=== PATIENT | female | born 1970 | race Caucasian/White ===

== ENCOUNTER → 2023-09-13 17:37 | Outpatient (REF) | payer OTHER, SELFPAY | LOC: WDC 17:37 | PROVIDERS: ATTENDING PHYSICIAN Obstetrics & Gynecology; FAMILY PHYSICIAN Family Medicine | DX: Z12.31 Encounter for screening mammogram for malignant neoplasm of breast (principal) | CPT/HCPCS: 77063; 77067 ==

== ENCOUNTER 2024-06-11 06:24 | Day surgery (SDC) | payer OTHER, SELFPAY | END 2024-06-11 11:07 | disposition home or self-care (01) | LOC: GI 06:24 | PROVIDERS: ATTENDING PHYSICIAN Internal Medicine | DX: Z12.11 Encounter for screening for malignant neoplasm of colon (principal); K57.30 Diverticulosis of large intestine without perforation or abscess without bleeding; D12.2 Benign neoplasm of ascending colon | CPT/HCPCS: 45385; 88305 ==

== ENCOUNTER → 2024-11-05 17:17 | Outpatient (REF) | payer OTHER, SELFPAY | LOC: WDC 17:17 | PROVIDERS: ATTENDING PHYSICIAN Obstetrics & Gynecology; FAMILY PHYSICIAN Family Medicine | DX: Z12.31 Encounter for screening mammogram for malignant neoplasm of breast (principal) | CPT/HCPCS: 77063; 77067 ==